=== PATIENT | female | born 1945 | race Caucasian/White ===

== ENCOUNTER 2024-04-13 09:22 | Emergency (ER) | payer MEDICARE, OTHER ==
[~2024-04-13] VITALS: Ht 154.9 cm; Wt 72.6 kg
[~2024-04-13 09:22] MED LIST: DICLOFENAC SODI25 MG PO; METOPROLOL SUCC25 MG PO; MISOPROSTOL100 MCG PO; PRAVASTATIN SOD40 MG PO; TRIAMTERENE-HCTZ1 EA PO
[2024-04-13 09:35] VITALS: PULSE 86; RESP 18; TEMP 97.6; O2SAT 97
[2024-04-13] MEDS ORDERED: VENTOLIN HFA18 GM INH (09:56)
[2024-04-13] MEDS ORDERED: DOXYCYCLINE HY100 M3 PO (09:56)
== END 2024-04-13 10:35 | disposition home or self-care (01) ==
LOC: FSED 09:27
DX: R05.9 Cough, unspecified (principal); J40 Bronchitis, not specified as acute or chronic
CPT/HCPCS: 71046; 99283

== ENCOUNTER 2024-09-21 11:02 | Emergency (ER) | payer MEDICARE, OTHER ==
[~2024-09-21] VITALS: Ht 154.9 cm; Wt 70.0 kg
[~2024-09-21 11:02] MED LIST changes: +DOXYCYCLINE HY100 M3 PO; +VENTOLIN HFA18 GM INH
[2024-09-21] MEDS: ACETAMINOPHEN 325 MG TAB PO ONE (11:52)
[2024-09-21] MEDS ORDERED: AUGMENTIN 500-1 EACH PO (12:24)
[2024-09-21 12:34] VITALS: PULSE 54; RESP 14; TEMP 98.6; O2SAT 99
== END 2024-09-21 12:34 | disposition home or self-care (01) ==
LOC: FSED 11:11
DX: R51.9 Headache, unspecified (principal); J01.90 Acute sinusitis, unspecified; R05.9 Cough, unspecified; I10 Essential (primary) hypertension; M54.9 Dorsalgia, unspecified; G89.29 Other chronic pain; Z11.52 Encounter for screening for COVID-19; Z96.653 Presence of artificial knee joint, bilateral
CPT/HCPCS: 0223U; 87400; 99283